=== PATIENT | male | born 1960 | race Caucasian/White ===

== ENCOUNTER 2017-02-16 21:56 | Emergency (ER) | payer BC ==
[2017-02-16 22:20] LABS: Hematocrit 44.4 % (42.0-52.0); Mean Platelet Volume 7.9 fL (7.4-10.4); Red Blood Cell (RBC) Count 4.75 mill/uL (4.70-6.10); White Blood Cell (WBC) Count 7.1 thou/uL (4.8-10.8)
[2017-02-16 22:32] LABS: Band 5 % (5-11); Neutrophil 87 % (42-75)
[2017-02-16 22:33] LABS: ALT (SGPT) 35 U/L (8-55); AST (SGOT) 44 U/L (5-34); Alkaline Phosphatase 93 U/L (40-150); Anion Gap 15 mmol/L (10-20); BUN (Urea Nitrogen) 10 mg/dL (8.4-25.7); Bilirubin, Total 0.6 mg/dL (0.2-1.2); Calc. Creatinine Clearance 0 mL/min (70-130); Calcium 8.9 mg/dL (7.8-10.44); Carbon Dioxide 25 mmol/L (22-29); Chloride 105 mmol/L (98-107); Estimated GFR-MDRD Greater than 90; Globulin 2.9 g/dL (2.4-3.5); Protein, Total 6.7 g/dL (6.0-8.3)
[2017-02-16 22:35] LABS: Troponin I Less than 0.010 ng/mL (< 0.028)
--- NOTE | 2017-02-16 22:35 | RAD ---
CHEST ONE VIEW 02/16/17 HISTORY: Chest pain. COMPARISON: Chest two view from 2015. FINDINGS: Lungs are clear. No pneumothorax or effusion. Cardiac silhouette and mediastinal contours are within normal limits. IMPRESSION: 1. No acute intrathoracic abnormality. 2. Old right clavicular fracture. POS: [facility]
== END 2017-02-16 23:34 | disposition home or self-care (01) ==
LOC: SCSER 21:56
DX: R07.89 Other chest pain (principal); B34.9 Viral infection, unspecified; Z79.82 Long term (current) use of aspirin
CPT/HCPCS: 71010; 80053; 82553; 84484; 85025; 93005

== ENCOUNTER 2021-05-26 10:18 | Outpatient (CLI) | payer BC | END 2021-05-26 10:19 | disposition home or self-care (01) | LOC: BICMAMMO 10:18 | PROVIDERS: ATTEND Family Medicine | DX: N63.41 Unspecified lump in right breast, subareolar (principal) | CPT/HCPCS: 77066; G0279 ==

== ENCOUNTER 2023-05-07 11:57 | Outpatient (CLI) | payer BC | END 2023-05-07 11:58 | disposition home or self-care (01) | LOC: SCSRAD 11:57 | PROVIDERS: ATTEND Family Medicine | DX: R05.8 Other specified cough (principal) | CPT/HCPCS: 71046 ==